=== PATIENT | female | born 1950 | race Caucasian/White ===

== ENCOUNTER 2024-07-08 17:39 | Inpatient (IN) | payer MEDICARE ==
[~2024-07-08] VITALS: Ht 170.2 cm; Wt 66.4 kg
[2024-07-08] MEDS ORDERED: LEVOTHYROXINE100 MCG PO (18:04)
[2024-07-08] MEDS ORDERED: LOSARTAN POTASS25 MG PO (18:04)
[2024-07-08] MEDS ORDERED: INGREZZA80 MG PO (18:04)
[2024-07-08 18:18] LABS: HEMATOCRIT 40.6 % (35.0-50.0); MCH 29.5 (27-36); MCHC 34.4 g/dl (30-36); MCV 85.6 fl (81-99); PLATELET COUNT 222 K/uL (140-440); RBC 4.74 M/ul (4.3-5.7); RDW 14.1 (10.5-15.0)
[2024-07-08 18:28] LABS: INR 1.32 (0.80-1.30); PROTIME 15.6 Sec (11.2-14.2)
[2024-07-08] MEDS ORDERED: AZITHROMYCIN 500 MG in DEXTROSE 5% 250 ML IV ONE (18:30)
[2024-07-08] MEDS ORDERED: CEFTRIAXONE SODIUM 1 GM in SODIUM CHLORIDE 0.9% 100 ML IV ONE (18:30)
[2024-07-08 18:56] LABS: ALBUMIN 2.9 g/dL (3.4-5.0); ALBUMIN/GLOBULIN RATIO 0.69 (1.1-2.4); ANION GAP 15.4 (7-21); BILIRUBIN, TOTAL 1.5 mg/dL (0.2-1.0); BUN/CREATININE RATIO 17.59 (6.0-28.6); CALCIUM 9.1 mg/dL (8.5-10.1); CREATININE, SERUM 1.08 mg/dL (0.55-1.02); POTASSIUM 3.4 mmol/L (3.5-5.1); PROTEIN, TOTAL 7.1 g/dL (6.4-8.2)
[2024-07-08 19:01] LABS: BANDS, MANUAL DIFF 1; LYMPHOCYTES, MANUAL DIFF 6; MONOCYTES, MANUAL DIFF 5; NEUTROPHILS, MANUAL DIFF 88
[2024-07-08] MEDS ORDERED: SODIUM CHLORIDE 0.9% 500 ML IV PRN (19:15)
[2024-07-08 19:45] LABS: BILIRUBIN, URINE NEGATIVE (negative); BLOOD/HGB, URINE LARGE (Negative); KETONE, URINE NEGATIVE (Negative); LEUK ESTERASE, URINE NEGATIVE (negative); NITRITE, URINE NEGATIVE (negative); PH, URINE 5.5 (5-7)
[2024-07-08] MEDS ORDERED: ACETAMINOPHEN 325 MG TAB PO PRN (20:00)
[2024-07-08] MEDS ORDERED: ondansetron HCL 4 MG/2 ML VIAL IV PRN (20:00)
[2024-07-08] MEDS ORDERED: SODIUM CHLORIDE 0.9% 1,000 ML IV SCH (20:00)
[2024-07-08 20:01] LABS: BACTERIA, URINE RARE /hpf (negative); CASTS, URINE GRANULAR 1+ \\lpf; COLLECTION TYPE, URINE CLEAN CATCH; CRYSTALS, URINE NONE SEEN (0-1+); EPITHELIAL CELLS, URINE NONE SEEN /lpf (0-1+); REFLEX CULTURE, URINE No (No)
--- NOTE | 2024-07-08 20:45 | NUR ---
PATIENT BROUGHT TO FLOOR BY BANDOLEER PACKER. REPORT RECEIVED FROM BANDOLEER PACKER. PATIENT TRANSFERRED FROM STRETCHER TO BED BY STAFF. THIS RN COMPLETED AN NIH AT ARRIVAL AND OBTAINED AN NIH SCORE OF 2. PATIENT A&O X4 WITH EQUAL STRENGTH IN ALL EXTREMETIES. PATIENT IS SLOW TO RESPOND AND HAS TROUBLE FINDING WORDS AT TIMES BUT TRACKS CONVERSATION APPROPRIATELY. NO FACIAL DROOP. PATIENT EDUCATED TO ROOM AND CALL LIGHT. PATIENT VERBILLIZES UNDERSTANDING. GROUND CREW LINES PERSON REMAINS IN ROOM.
[2024-07-08 21:10] VITALS: BP 110/64
[2024-07-08] MEDS ORDERED: NYSTATIN 500,000 UNITS/5 ML CUP PO SCH (21:15)
--- NOTE | 2024-07-08 21:18 | EKG ---
[facility] [address] [facility] [place] [address] Signed Sinus tachycardia Otherwise normal ECG No previous ECGs available Confirmed by Chikis Lehman MD () on 07/08/2024 9:18:13 PM Electronically Signed By: CHIKIS LEHMAN MD 07/08/[id number] PATIENT NAME: BLANK CROWE Electrocardiogram DATE OF : 48 PHYSICIAN: CHIKIS LEHMAN MD REPORT #: [id number] REPORT IS CONFIDENTIAL AND NOT TO BE RELEASED WITHOUT AUTHORIZATION
[2024-07-08] MEDS ORDERED: BENZONATATE 100 MG CAP PO PRN (21:30)
[2024-07-08] MEDS ORDERED: guaiFENesin 600 MG TABCR PO PRN (21:30)
[2024-07-08] MEDS ORDERED: POTASSIUM CHLORIDE 10 MEQ TABCR PO ONE (21:45)
--- NOTE | 2024-07-08 22:40 | NUR ---
PATIENT RESTING IN BED. SWALLOW EVAL COMPLETED. PATIENT SWALLOWS WITHOUT DIFFICULTY. NO COUGHING NOTED AFTER SWALLOWING. ASSESSMENT COMPLETED. SCHEDULED MEDICATION ADMINISTERED. PRN PAIN MEDICATION ADMINISTERED FOR LUQ PAIN PATIENT STATES THAT PAIN IS NOT NEW AND IT IS "FROM HER PNEUMONIA". PUREWICK PLACED AFTER PHILLIP CARE PROVIDED. FRESH WATER PROVIDED. PATIENT DENIES FURTHER NEEDS. CALL LIGHT IN REACH. BED ALARM ON.
[2024-07-09] VITALS (11 sets, daily range): BP systolic 99–124; BP diastolic 51–64
--- NOTE | 2024-07-09 01:27 | NUR ---
ROUNDING ON PATIENT. PATIENT STATING SHE CANNOT PEE INTO THE PUREWICK AND REQUESTING TO GET UP TO THE BSC. THIS RN AND INVOICING SPECIALIST IN ROOM TO ASSIST PATIENT TO BSC. PATIENT UP TO BSC USING 1PA TO VOID. PATIENT BACK TO BED. VS AND I&Os OBTAINED AND RECORDED. PATIENT REQUESTING TO NOT WEAR NC AT THIS TIME. O2 SAT 96% ON RA. PATIENT TITRATED TO ROOM AIR. RT YAN AWARE. PATIENT BED ALARM ON. NO FURTHER NEEDS AT THIS TIME. CALL LIGHT IN REACH.
--- NOTE | 2024-07-09 02:55 | NUR ---
PATIENT RESTING IN BED ON BACK WITH EYES CLOSED. RESPIRATIONS EVEN AND UNLABORED. CALL LIGHT IN REACH.
--- NOTE | 2024-07-09 04:47 | NUR ---
PATIENT RESTING IN BED WITH EYES CLOSED. RESPIRATIONS EVEN AND UNLABORED. CALL LIGHT IN REACH. BED ALARM ON.
[2024-07-09 05:36] LABS: BASOPHILS 0.2 % (0-2); EOSINOPHILS 0.1 % (0-6); HEMATOCRIT 36.6 % (35.0-50.0); HEMOGLOBIN 12.7 g/dL (12.0-18.0); LYMPHOCYTES 7.1 % (24-44); MCH 29.3 (27-36); MCHC 34.6 g/dl (30-36); MCV 84.6 fl (81-99); MONOCYTES 3.8 % (0-12); NEUTROPHILS 88.8 % (39-80); PLATELET COUNT 202 K/uL (140-440); RBC 4.33 M/ul (4.3-5.7); RDW 14.3 (10.5-15.0)
[2024-07-09 05:46] LABS: SMEAR REVIEW BLOOD SEE COMMENTS
[2024-07-09 06:00] LABS: ALBUMIN 2.6 g/dL (3.4-5.0); ALBUMIN/GLOBULIN RATIO 0.7 (1.1-2.4); ANION GAP 12.9 (7-21); BUN/CREATININE RATIO 21.83 (6.0-28.6); CHOLESTEROL/HDL RATIO 2.5; CREATININE, SERUM 0.87 mg/dL (0.55-1.02); MAGNESIUM 1.8 mg/dL (1.8-2.4); PHOSPHORUS, INORGANIC 2.2 mg/dL (2.5-4.9); POTASSIUM 3.9 mmol/L (3.5-5.1); PROTEIN, TOTAL 6.3 g/dL (6.4-8.2); TSH, 3RD GENERATION 0.162 uIU/mL (0.358-3.740)
--- NOTE | 2024-07-09 06:05 | NUR ---
THIS RN AND CAMELID FIBER SORTER CRYS IN ROOM TO OBTAINED VITALS AND I&Os. PATIENT UP TO BSC USING 1P SBA TO HAVE LIQUID BM. PATIENT BACK TO BED. SCDs IN PLACE. PATIENT A&O x4 AT THIS TIME. PATIENT HAS NO FURTHER NEEDS AT THIS TIME. CALL LIGHT IN REACH. BED ALARM ON.
--- NOTE | 2024-07-09 08:18 | NUR ---
ASSESSMENT COMPLETE. PT RESTING IN BED, NO COMPLAINTS OR REQUESTS AT THIS TIME. NEURO CHECK UNREMARKABLE. PT A&OX4, EQUAL STRENGTH CICI UPPER AND LOWER EXTREMITIES. NO SPEECH DELAY OR DIFFICULTY FINDING WORDS THIS MORNING PER PT. CALL LIGHT IN REACH.
[2024-07-09] MEDS ORDERED: INCRUSE ELLI62.5 MCG INH (08:44)
[2024-07-09] MEDS ORDERED: SOD PHOS MONO/SOD PHOS DIBAS 1 EACH PACKET PO ONE (09:00)
--- NOTE | 2024-07-09 09:18 | NUR ---
UR CLINICAL REVIEW: 2MN KAYODE, MEETS INPT FOR TIA, PNEUMONIA, SEPSIS ECHO, NEURO CHECKS, MRI, IV ANTIBIOTICS, OXYGEN USE ON ADMISSION. MEDICARE RAILROAD INPT 07/08/24 @ 2003 ORDER MATCHES REG NO AUTH PER MEDICARE RULES DC TO HOME WHEN MEDICALLY STABLE, 1-2 DAYS.
--- NOTE | 2024-07-09 09:45 | NUR ---
ECHO IN ROOM
--- NOTE | 2024-07-09 09:52 | NUR ---
MED REC COMPLETE
--- NOTE | 2024-07-09 10:25 | NUR ---
PT UP AMBULATING IN HALLS WITH PT, TOLERATING WELL.
--- NOTE | 2024-07-09 10:46 | NUR ---
CHIQUITA FROM DISCHARGE PLANNING IN TO SEE PT. SISTER IN ROOM. THIS RN ASKED JOANNA (SISTER) IF PT HAS ANY FACIAL DROOP, SISTER STATES THAT HER SISTER'S FACE LOOKS "NORMAL". NO ABNORMALITIES SEEN. CALL LIGHT WITHIN REACH. PT SITTING IN CHAIR. NO REQUESTS AT THIS TIME.
--- NOTE | 2024-07-09 11:59 | NUR ---
INTO SEE PATIENT. SISTER AT BEDSIDE. PERSONAL HEALTH INFORMATION REVIEWED. PATIENT LIVES IN A [place] ALONE. 2 STEPS TO GET INTO. DENIES ANY DIFFCULTY DOING THEM. DOES NOT HAVE DME AT HOME. PATIENT STILL DRIVES. SISTER TO DRIVE PATIENT HOME AT TIME OF DISCHARGE. DENIES ANY DIFFCULTY PAYING UTILITIES OR OBTAINING FOOD. NO FUTHER CM NEEDS AT THIS TIME.
[2024-07-09] MEDS ORDERED: PHARMACY RENAL DOSE ADJUSTMENT 1 DOSE MISC PO SCH (12:00)
--- NOTE | 2024-07-09 12:50 | NUR ---
PATIENT CALLS FROM BATHROOM, STATES "I POOPED MY PANTS". PATIENT HAS LOOSE STOOLS THAT ARE ORANGE/BROWN IN COLOUR. PATIENT PROVIDES HER OWN PHILLIP-CARE AND IS ASSISTED INTO A NEW PULL-UP. PATIENT WASHES HER HANDS AND AMBULATES BACK TO RECLINER. LUNCH TRAY REMOVED. NO REQUESTS, CALL LIGHT AND PERSONAL BELONGINGS IN REACH.
[2024-07-09] MEDS ORDERED: PATIENT'S OWN MEDICATION(S) ORDER PO SCH (12:59)
--- NOTE | 2024-07-09 13:08 | NUR ---
DR LEHMAN IN TO SEE PT AND DISCUSS PLAN OF CARE
--- NOTE | 2024-07-09 13:13 | NUR ---
PT RESTING IN CHAIR WITH LEGS ELEVATED VISITING [facility] PHARMACIST. CALL LIGHT WITHIN REACH, NO REQUESTS AT THIS TIME
[2024-07-09] MEDS ORDERED: IPRATROPIUM BROMIDE 2.5 ML VIAL INH SCH (14:00)
--- NOTE | 2024-07-09 14:32 | NUR ---
PT AWAKE SITTING IN CHAIR WITH LEGS RECLINED VISITING WITH SISTER, JOANNA. JOANNA BROUGHT PT'S HOME MEDS IN. MEDS PLACED IN LOCKBOX IN ROOM. CALL LIGHT WITHIN REACH, NO REQUESTS AT THIS TIME.
[2024-07-09] MEDS ORDERED: VALBENAZINE TOSYLATE 80 MG CAPSULE PO SCH (15:30)
--- NOTE | 2024-07-09 15:35 | NUR ---
SPEECH THERAPY IN TO SEE PT
--- NOTE | 2024-07-09 16:40 | NUR ---
PT SITTING UP IN CHAIR, REGULAR MENU GIVEN TO PT AND EXPLAINED HOW TO ORDER MEALS. PT STATES UNDERSTANDING.
[2024-07-09] MEDS ORDERED: CEFTRIAXONE SODIUM 2 GM in SODIUM CHLORIDE 0.9% 100 ML IV SCH (18:00)
[2024-07-09] MEDS ORDERED: AZITHROMYCIN 500 MG in DEXTROSE 5% 250 ML IV SCH (18:00)
--- NOTE | 2024-07-09 18:11 | NUR ---
PT FINISHING DINNER AND TALKING TO HER SISTER ON THE PHONE. NO REQUESTS AT THIS TIME. CALL LIGHT WITHIN REACH.
--- NOTE | 2024-07-09 18:18 | NUR ---
PATIENT IN CHAIR AT THIS TIME. MORTGAGE PROCESSING CLERK CHARTED VITALS AND I&O'S. CALL LIGHT WIHTIN REACH, NO FURTHER NEEDS AT THIS TIME.
--- NOTE | 2024-07-09 19:25 | NUR ---
REPORT RECEIVED FROM BEATRIZ GODFREY. PATIENT SITTING UP IN CHAIR. PATIENT DENIES ANY NEEDS AT THIS TIME. CALL LIGHT AND PERSONAL BELONGINGS ARE WITHIN REACH.
--- NOTE | 2024-07-09 20:25 | NUR ---
PATIENT SITTING UP IN HER CHAIR. VITAL SIGNS OBTAINED. FRESH CHUX PAD AND LINENS PROVIDED. PATIENT AMBULATED TO BED WITH THIS RN AT SIDE. PATIENT TOLERATED WELL. PATIENT IV X2 FLUSHED WITH 10ML OF NS, DRESSINGS ARE INTACT. IV FLUID INFUSING AT 125ML/HR IN PATIENT RIGHT WRIST IV. PATIENT ASSESSMENT COMPLETED. PATIENT WITHOUT FURTHER NEEDS AT THIS TIME. CALL LIGHT AND PERSONAL BELONGINGS ARE WITHIN REACH. VITAL SIGNS ARE STABLE.
--- NOTE | 2024-07-09 21:40 | NUR ---
PATIENT RESTING IN BED WITH HER EYES CLOSED. EVEN AND UNLABORED RESPIRATIONS NOTED. CALL LIGHT AND PERSONAL BELONGINGS ARE WITHIN REACH.
--- NOTE | 2024-07-09 22:50 | NUR ---
PATIENT RESTING IN BED ON HER LEFT SIDE WITH HER EYES CLOSED. EVEN AND UNLABORED REPIRATIONS NOTED. CALL LIGHT AND PERSONAL BELONGINGS ARE WITHIN REACH.
--- NOTE | 2024-07-09 23:14 | NUR ---
RESPONDED TO BEEPING IV. REPLACED FLUIDS. PT RESTING IWTH EYES CLOSED, BREATHING AUDIBLE. CALL LIGHT IN REACH
[2024-07-10] VITALS (12 sets, daily range): BP systolic 129–150; BP diastolic 68–86
--- NOTE | 2024-07-10 00:20 | NUR ---
PATIENT RESTING IN BED ON HER LEFT SIDE WITH HER EYES CLOSED. EVEN AND UNLABORED RESPIRATIONS NOTED. CALL LIGHT AND PERSONAL BELONGINGS ARE WITHIN REACH.
--- NOTE | 2024-07-10 01:20 | NUR ---
PATIENT NEURO CHECK COMPLETE. PATIENT IS ALERT AND ORIENTED X4. PATIENT VITAL SIGNS TAKEN AND ARE STABLE. PATIENT WITHOUT FURTHER NEEDS AT THIS TIME. CALL LIGHT AND PERSONAL BELONGINGS ARE WITHIN REACH.
--- NOTE | 2024-07-10 01:26 | NUR ---
ASSISTED TO BATHROOM 1PA. NO OTHER NEEDS PRESENTLY, CALL LIGHT IN REACH
--- NOTE | 2024-07-10 02:39 | NUR ---
PATIENT RESTING IN BED ON HER LEFT SIDE WITH HER EYES CLOSED. EVEN AND UNLABORED RESPIRATIONS NOTED. CALL LIGHT AND PERSONAL BELONGINGS ARE WITHIN REACH.
--- NOTE | 2024-07-10 03:42 | NUR ---
PATIENT RESTING IN BED ON HER LEFT SIDE WITH HER EYES CLOSED. EVEN AND UNLABORED RESPIRATIONS NOTED. CALL LIGHT AND PERSONAL BELONGINGS ARE WITHIN REACH.
[2024-07-10 05:18] LABS: BASOPHILS 0.3 % (0-2); EOSINOPHILS 1.6 % (0-6); HEMATOCRIT 35.3 % (35.0-50.0); HEMOGLOBIN 12.2 g/dL (12.0-18.0); LYMPHOCYTES 14.7 % (24-44); MCH 29.2 (27-36); MCHC 34.6 g/dl (30-36); MCV 84.6 fl (81-99); MONOCYTES 3.9 % (0-12); NEUTROPHILS 79.5 % (39-80); PLATELET COUNT 197 K/uL (140-440); RBC 4.18 M/ul (4.3-5.7); RDW 14.3 (10.5-15.0)
[2024-07-10 05:34] LABS: ALBUMIN 2.2 g/dL (3.4-5.0); ALBUMIN/GLOBULIN RATIO 0.65 (1.1-2.4); ANION GAP 13.7 (7-21); BILIRUBIN, TOTAL 0.3 mg/dL (0.2-1.0); BUN/CREATININE RATIO 22.38 (6.0-28.6); CALCIUM 8.4 mg/dL (8.5-10.1); CREATININE, SERUM 0.67 mg/dL (0.55-1.02); POTASSIUM 3.7 mmol/L (3.5-5.1); PROTEIN, TOTAL 5.6 g/dL (6.4-8.2)
--- NOTE | 2024-07-10 05:50 | NUR ---
PATIENT MEDICATED PER EMAR. NEURO CHECK COMPLETED. INTAKE AND OUTPUT DOCUMENTED. PATIENT WITHOUT FURTHER NEEDS AT THIS TIME. CALL LIGHT AND PERSONAL BELONGINGS ARE WITHIN REACH.
[2024-07-10] MEDS ORDERED: LEVOTHYROXINE SODIUM 88 MCG TAB PO SCH (06:00)
--- NOTE | 2024-07-10 07:18 | NUR ---
PATIENT SLEEPING IN BED AT THIS TIME. ENGRAVER SEALS DID HOURLY ROUNDS. CALL LIGHT WITHIN REACH, NO FURTHER NEEDS AT THIS TIME.
--- NOTE | 2024-07-10 07:44 | NUR ---
Patient resting in bed, eyes closed, respirations non labored. Call light within reach.
[2024-07-10] MEDS ORDERED: metroNIDAZOLE/SODIUM CHLORIDE 500 MG/100 ML PIGGYBACK IV SCH (08:00)
--- NOTE | 2024-07-10 08:22 | NUR ---
Patient sitting up in chair eating breakfast, alert and oriented x4, no acute distress. Patient ambulated to restroom, minimal assistance with IV pole. Patient denies numbness/tingling. Equal claims representative to upper/lower extremities. Morning medications admin at this time. Patient also received prn tylenol 650mg po, mucinex and tessalon perles for cough/congestion.
--- NOTE | 2024-07-10 08:33 | NUR ---
Patient in bed eating breakfast with her at bedside. notably attentive to patient, he provides assistance with basic care duties.
--- NOTE | 2024-07-10 08:49 | NUR ---
LOYD AND LOYD MAYFIELD ASSISTED PT TO CHAIR BED CHANGE COMPLETED CALL LIGHT WITHIN REACH BEATRIZ DOLL IN ROOM AT THIS TIME NO FURTHER NEEDS
--- NOTE | 2024-07-10 09:34 | NUR ---
PATIENT IN CHAIR AT THIS TIME. LOYD MATHIAS AND THIS OFFSET PRINTING OPERATOR CAHRTED VITALS AND I&O'S. PATIENT STATED THAT SHE COUGHED UP BLOOD, BEATRIZ VIVEROS NOTIFIED. CALL LIGHT WITHIN REACH, NO FURTHER NEEDS AT THIS TIME.
--- NOTE | 2024-07-10 10:56 | NUR ---
Patient in chair watching tv, no distress. Patient reports coughing up more mucus, very scant pink blood noted on kleenex. Patient denies shortness of breath at this time. Patient's iv patent, fluids infusing her order. No current needs, personal supplies and call light within reach.
--- NOTE | 2024-07-10 14:59 | NUR ---
COMPLETED VITAL SIGNS PT NEEDED TO USE THE TOILET, VOIDED 300 ML STANDBY ASSIST TO TOILET AND BACK TO CHAIR PLUGGED PT'S IV BACK IN, COVERED PT WITH BLANKET, INSTRUCTED PT MILK DRIER LIGHT OPERATION AND PLACED CALL LIGHT NEXT TO PT PT REQUESTED OVERHEAD LIGHTS TO BE TURNED OFF NOTHING ELSE NEEDED AT THIS TIME
--- NOTE | 2024-07-10 19:33 | NUR ---
REPORT RECEIVED FROM BEATRIZ VIVEROS. PATIENT SITTING UP IN CHAIR, IV FLUIDS INFUSING. PATIENT REQUESTING TO "NOT BE BOTHERED TONIGHT". THIS RN LET PATIENT KNOW BEGINGING OF SHIFT VITALS, NEURO CHECK/ASSESSMENT, AND MEDICATION ADMINISTRATION NEEDS TO BE COMPLETED; BUT THEN PATIENT CAN REST THROUGHOUT THE NIGHT. THIS RN LET PATIENT KNOW STAFF WILL BE COMING IN TO CHECK ON PATIENT HOURLY THROUGHOUT THE NIGHT, BUT WILL RESPECT HER WISHES TO NOT BE WOKEN UP. THIS RN ALSO LET PATIENT KNOW 0500 BLOOD DRAW NEEDS TO BE COMPLETED, BUT PATIENT MORNING VITAL SIGNS, MEDICATIONS, AND NEURO CHECK/ASSESSMENT CAN ALL BE COMPLETED AT THE SAME TIME. PATIENT VERBALIZED AGREEMENT WITH PLAN. PATIENT REQUESTING TO USE BATHROOM AT THIS TIME. BEATRIZ VIVEROS IN ROOM STILL AND ASSISTED PATIENT UP TO THE BATHROOM.
--- NOTE | 2024-07-10 20:45 | NUR ---
BARI, RN IN WITH PATIENT AT THIS TIME.
--- NOTE | 2024-07-10 21:25 | NUR ---
PATIENT ASSESSMENT COMPLETED. PATIENT IS ALERT AND ORIENTED X4, TRANSFERS VIA 1PR FOR SUPERVISION DUE TO ADMIT DX OF PNA/TIA. PATIENT DENIES ANY DIZZINESS WITH TRANSFERS AND STATES "I WALKED AROUND MY ROOM TODAY AND CLEANED IT UP AND ORGANIZED IT ALL ON MY OWN AND DIDN'T FEEL DIZZY AT ALL". THIS RN ASKED PATIENT TO CALL IF SHE NEEDS TO GET UP TO THE BATHROOM IN THE MIDDLE OF THE NIGHT FOR STAFF TO MANAGE THE IV LINES FOR SAFE PATIENT TRANSFERING. PATIENT VERBALIZED UNDERSTANDINGS AND AGREES TO CALL. PATIENT CARDIAC IS REGULAR WITH S1-S2 NOTED AND IN SINUS RHYTHM AT THIS TIME. PATIENT IS ON TELE #6. CAPILARY REFILL IS <3 SECONDS IN BILATERAL UPPER AND LOWER EXTREMETIES. PATIENT DENIES ANY NUBNESS OR TINGLING IN UPPER OR LOWER EXTREMETIES. CMS INTACT. PATIENT SKIN IS INTACT. PATIENT DENIES ANY PAIN AT THIS TIME. PATIENT IS ON ROOM AIR, LUNG SOUNDS ARE DIMINISHED/CRACKLES IN BILATERAL UPPER LOBES AND WITH CRACKLES IN BILATERAL BASES. PRN MUCINEX ADMINISTERED PER PATIENT REQUEST. PATIENT DENIES ANY SOB OR CHEST PAIN/PRESSURE. PATIENT IS ON A REGULAR DIET WITH ACTIVE BOWEL TONES IN ALL FOUR QUADRANTS. PATIENT LAST BM WAS TODAY 07/10/24. PATIENT HAS RIGHT WRIST IV THAT WAS FLUSHED WITH 10ML OF NS, DRESSING INTACT. NS INFUSING CONTINUOUSLY AT 125ML/HR. IV TO LAC WAS REMOVED BY THIS RN DUE TO PATIENT REPORTIN SEVERE PAIN WHEN THIS RN ATTEMPTED TO FLUSH IV TO ASSESS PATENTCY. GAUZE WITH COBAN PLACED AFTER IV REMOVAL. IV CATHETER WAS INTACT. IV SITE WITHOUT REDNESS OR SWELLING. PATIENT WITHOUT FURTHER NEEDS AT THIS TIME. CALL LIGHT AND PERSONAL BELONGINGS ARE WITHIN REACH. THIS RN NOTIFIED DR LEHMAN THAT THE PATIENT IS REQUESTING TO BE LEFT ALONE THROUGHOUT THE NIGHT; TO NOT HAVE 0200 VITAL SIGNS AND NEURO CHECKS DONE. DR LEHMAN STATES HE IS OKAY WITH LETTING PATIENT REST. WITH NO FURTHER ORDERS AT THIS TIME.
--- NOTE | 2024-07-10 22:53 | NUR ---
PATIENT RESTING IN BED ON HER LEFT SIDE WITH HER EYES CLOSED. EVEN AND UNLABORED RESPIRATIONS NOTED. CALL LIGHT AND PERSONAL BELONGINGS ARE WITHIN REACH.
--- NOTE | 2024-07-10 23:57 | NUR ---
PATIENT RESTING IN BED ON HER LEFT RIGHT. EVEN AND UNLABORED RESPIRATIONS NOTED. CALL LIGHT AND PERSONAL BELONGINGS ARE WITHIN REACH.
[2024-07-11] VITALS (10 sets, daily range): BP systolic 145–163; BP diastolic 71–88
--- NOTE | 2024-07-11 00:08 | NUR ---
THIS RN IN ROOM FOR ABX INFUSION AND NEW BAG OF NS PLACED. PATIENT RESTING ON LEFT SIDE WITH EYES CLOSED, EVEN AND UNLABORED RESPIRATIONS NOTED. IV SITE WITHOUT S/SX OF INFECTION OR INFILTRATION. CALL LIGHT AND PERSONAL BELONGINGS ARE WITHIN REACH.
[2024-07-11 00:24] LABS: THYROXINE FREE 1.2 ng/dL (0.9-1.7)
--- NOTE | 2024-07-11 00:45 | NUR ---
PATIENT UP TO BATHROOM AT THIS TIME WITH INCONTINENCE EPISODE OF DIARRHEA. PATIENT STATES SHE THOUGHT SHE HAD TO PEE, THEN WENT TO THE BATHROOM AND "MY UNDERPANTS HAD POOP IN THEM". LIQUID STOOL NOTED. DUE TO PATIENT BEING ON ABX, THIS RN ADDED REQUEST TO DIETARY FOR YOGURT TO BE SENT WITH PATIENT MEALS. NEURO CHECK COMPLETED WHILE PATIENT IS UP. PATIENT IS ALERT AND ORIENTED X4, PATIENT AMBULATED TO BATHROOM WITHOUT ASSISTANCE AND WITHOUT REPORTS OF FEELING DIZZY OR LIGHTHEADED. CMS INTACT, SPEECH CLEAR, AND PUPILS ARE WNL. PATIENT REFUSING VITAL SIGNS AT THIS TIME. PATIENT WISHES RESPECTED. PATIENT BACK IN BED, IV ABX COMPLETED, NS INFUSING CONTINUOUS AT 125ML/HR. PATIENT WITHOUT FURTHER NEEDS AT THIS TIME. CALL LIGHT AND PERSONAL BELONGINGS ARE WITHIN REACH.
--- NOTE | 2024-07-11 01:10 | NUR ---
PATIENT UP TO BATHROOM AGAIN AT THIS TIME. PATIENT WILLINGLY LET THIS RN TAKE VITAL SIGNS. [employer] PROVIDED FRESH ICE WATER. PATIENT BACK IN BED AND WITHOUT FURTHER NEEDS. CALL LIGHT AND PERSONAL BELONGINGS ARE WITHIN REACH. VS STABLE.
--- NOTE | 2024-07-11 05:15 | NUR ---
PATIENT IV INFILTRATED. IV REMOVED, PATIENT EDUCATED TO KEEP ARM ELEVATED. PATIENT VERBALIZED UNDERSTANDING. PATIENT REQUESTING TO NOT HAVE ANOTHER IV. THIS RN EDUCATED PATIENT ON THE IMPORTANCE OF HAVING IV ACCESS IN CASE OF AN EMERGENCY, BUT LET PATIENT KNOW DR LEHMAN WILL BE NOTIFIED AND IF GIVEN THE ORDERS FOR NO IV ACCESS, IV CAN BE LEFT OUT. PATIENT AGREES WITH PLAN. PATIENT UP TO THE BATHROOM AT THIS TIME WITH MOVIE CRITIC.
[2024-07-11 05:31] LABS: BASOPHILS 0.5 % (0-2); EOSINOPHILS 3.5 % (0-6); HEMATOCRIT 35.9 % (35.0-50.0); HEMOGLOBIN 12.3 g/dL (12.0-18.0); LYMPHOCYTES 17.9 % (24-44); MCHC 34.3 g/dl (30-36); MCV 84.6 fl (81-99); MONOCYTES 5.5 % (0-12); NEUTROPHILS 72.6 % (39-80); PLATELET COUNT 231 K/uL (140-440); RBC 4.24 M/ul (4.3-5.7); RDW 13.9 (10.5-15.0)
[2024-07-11 05:52] LABS: ALBUMIN 2.2 g/dL (3.4-5.0); ALBUMIN/GLOBULIN RATIO 0.61 (1.1-2.4); ANION GAP 11.4 (7-21); BILIRUBIN, TOTAL 0.3 mg/dL (0.2-1.0); BUN/CREATININE RATIO 9.72 (6.0-28.6); CALCIUM 8.3 mg/dL (8.5-10.1); CREATININE, SERUM 0.72 mg/dL (0.55-1.02); POTASSIUM 3.4 mmol/L (3.5-5.1); PROTEIN, TOTAL 5.8 g/dL (6.4-8.2)
--- NOTE | 2024-07-11 06:00 | NUR ---
DR LEHMAN NOTIFIED OF PATIENT IV INFILTRATION. THIS RN NOTIFIED MD OF PATIENT WISHES TO NOT HAVE ANOTHER IV AND THAT PATIENT HAS HAD OVER 1000ML OF URINE OUTPUT THIS SHIFT. MD WITH VERBAL ORDERS TO STOP IV FLUIDS, BUT MD STATES HE WANTS TO KEEP IV ACCESS AVAILABLE. MD WITH NO FURTHER ORDERS AT THIS TIME.
--- NOTE | 2024-07-11 07:31 | NUR ---
VERBAL REPORT RECEIVED FROM BEATRIZ GARNICA. PT RESTS IN BED AWAKE AND ALERT. CALL LIGHT IN REACH. NO REQUESTS AT THIS TIME.
[2024-07-11] MEDS ORDERED: POTASSIUM CHLORIDE 10 MEQ TABCR PO ONE (07:45)
--- NOTE | 2024-07-11 08:13 | NUR ---
HOURLY ROUNDING. PATIENT APPEARS TO BE IN A GREAT MOOD, VERY GRATEFUL FOR THE SERVICE THAT SHE IS RECIEVING. NO REQUEST FROM PATIENT AT THIS TIME.
--- NOTE | 2024-07-11 11:28 | NUR ---
HOURLY ROUNDING. PATIENT IS ON HER PHONE NO REQUEST FROM PATIENT CALL LIGHT HAS BEEN PLACED WITHIN REACH
--- NOTE | 2024-07-11 12:53 | NUR ---
PT SITS UP IN RECLINER, RESP EVEN AND UNLABORED. PT IS ALERT AND ORIENTED, TOLERATES LUNCH WELL. CALL LIGHT IN REACH. DR. LEHMAN INTO SEE PT.
[2024-07-11] MEDS ORDERED: ASPIRIN 325 MG TAB PO ONE (13:15)
--- NOTE | 2024-07-11 19:20 | NUR ---
REPORT RECEIVED FROM BEATRIZ ZIMMERMAN AND SN MICHAEL. PATIENT SITTING UP IN CHAIR WATCHING TV. PATIENT WITHOUT ANY NEEDS AT THIS TIME. CALL LIGHT AND PERSONAL BELONGINGS ARE WITHIN REACH.
--- NOTE | 2024-07-11 20:19 | NUR ---
RT IN ROOM FOR BREATHING TREATMENT AT THIS TIME.
[2024-07-11] MEDS ORDERED: ATORVASTATIN 40 MG TAB PO SCH (21:00)
--- NOTE | 2024-07-11 21:00 | NUR ---
PATIENT MEDICATED PER EMAR. PATIENT ASSESSMENT COMPLETED. PATIENT IS ALERT AND ORIENTED X4, PATIENT TRANSFERS INDEPENDENTLY TO THE BATHROOM. PATIENT DENIES ANY PAIN AT THIS TIME. IV FLUSHED WITH 10ML OF NS, DRESSING INTACT AND IS SALINE LOCKED. WARM BLANKET PROVIDED. PATIENT WITHOUT FURTHER NEEDS AT THIS TIME. CALL LIGHT AND PERSONAL BELONGINGS ARE WITHIN REACH.
--- NOTE | 2024-07-11 22:28 | NUR ---
PATIENT RESTING IN BED ON HER LEFT SIDE WITH HER EYES CLOSED. EVEN AND UNLABORED RESPIRATIONS NOTED. CALL LIGHT AND PERSONAL BELONGINGS ARE WITHIN REACH.
--- NOTE | 2024-07-11 23:57 | NUR ---
PATIENT ABX STARTED AT THIS TIME. PATIENT RESTING ON HER LEFT SIDE WITH HER EYES CLOSED. EVEN AND UNLABORED RESPIRATIONS NOTED. CALL LIGHT AND PERSONAL BELONGINGS ARE WITHIN REACH.
--- NOTE | 2024-07-12 00:29 | NUR ---
IV ABX COMPLETED AT THIS TIME. IV FLUSHED WITH 10ML OF NS AND IS SALINE LOCKED, DRESSING INTACT. CALL LIGHT AND PERSONAL BELONGINGS ARE WITHIN REACH.
--- NOTE | 2024-07-12 02:23 | NUR ---
PATIENT RESTING IN BED ON HER LEFT SIDE WITH HER EYES OPENED. NEURO CHECK COMPLETED. PATIENT IS ALERT AND ORIENTED X4. PATIENT DENIES ANY NUMBNESS OR TINGLING. CMS INTACT. PATIENT WITHOUT ANY NEEDS AT THIS TIME. CALL LIGHT AND PERSONAL BELONGINGS ARE WITHIN REACH.
--- NOTE | 2024-07-12 03:41 | NUR ---
PATIENT RESTING IN BED ON HER LEFT SIDE WITH HER EYES CLOSED. EVEN AND UNLABORED RESPIRATIONS NOTED. CALL LIGHT AND PERSONAL BELONGINGS ARE WITHIN REACH.
--- NOTE | 2024-07-12 05:29 | NUR ---
PATIENT MEDICATED PER EMAR. VITAL SIGNS AND INTAKE AND OUTPUT TAKEN AND DOCUMENTED. LAB IN ROOM AT THIS TIME FOR MORNING BLOOD DRAW. PATIENT WITHOUT FURTHER NEEDS AT THIS TIME. CALL LIGHT AND PERSONAL BELONGINGS ARE WITHIN REACH. VITAL SIGNS ARE STABLE.
[2024-07-12 05:34] VITALS: BP 164/91
[2024-07-12 05:37] LABS: BASOPHILS 0.8 % (0-2); EOSINOPHILS 4.9 % (0-6); HEMATOCRIT 37.1 % (35.0-50.0); HEMOGLOBIN 13.1 g/dL (12.0-18.0); LYMPHOCYTES 18.1 % (24-44); MCH 29.5 (27-36); MCHC 35.2 g/dl (30-36); MCV 83.7 fl (81-99); MONOCYTES 6.4 % (0-12); NEUTROPHILS 69.8 % (39-80); PLATELET COUNT 257 K/uL (140-440); RBC 4.43 M/ul (4.3-5.7); RDW 14.1 (10.5-15.0)
[2024-07-12 05:54] LABS: ALBUMIN 2.7 g/dL (3.4-5.0); ALBUMIN/GLOBULIN RATIO 0.75 (1.1-2.4); ANION GAP 10.8 (7-21); BILIRUBIN, TOTAL 0.3 mg/dL (0.2-1.0); BUN/CREATININE RATIO 8.21 (6.0-28.6); CREATININE, SERUM 0.73 mg/dL (0.55-1.02); POTASSIUM 3.8 mmol/L (3.5-5.1); PROTEIN, TOTAL 6.3 g/dL (6.4-8.2)
--- NOTE | 2024-07-12 07:12 | NUR ---
VERBAL REPORT RECEIVED FROM BEATRIZ GARNICA. PT AWAKE AND ALERT IN RECLINER, CALL LIGHT IN REACH, NO REQUESTS AT THIS TIME.
[2024-07-12] MEDS ORDERED: ASPIRIN 81 MG CHEW PO SCH (08:00)
--- NOTE | 2024-07-12 08:37 | NUR ---
HOURLY ROUNDING. PATIENT APPEARS TO BE IN GOOD SPIRITS THIS MORNING, I UPDATED THE BOARD. NO REQUEST FROM PATIENT AT THIS TIME
[2024-07-12 09:56] VITALS: BP 154/89
--- NOTE | 2024-07-12 10:22 | NUR ---
MEWS AND SHIFT SCREENING RECEIVED.
--- NOTE | 2024-07-12 10:26 | NUR ---
PT RECOMMENDING OUT PATIENT PT. DISCUSSED WITH PATIENT. PATIENT CHOICES PROVIDED. STATES [facility] IS HER PREFERENCE. DENIES OTHER CM NEEDS AT THIS TIME. WILL SEND OUTPATIENT REFERRAL TO [facility].
[2024-07-12] MEDS ORDERED: ASPIRIN81 MG PO (11:03)
[2024-07-12] MEDS ORDERED: LEVOTHYROXINE88 MCG PO (11:03)
[2024-07-12] MEDS ORDERED: CEFPODOXIME PR200 MG PO (11:06)
--- NOTE | 2024-07-12 11:50 | NUR ---
DISCUSSED DISCHARGE INSTRUCTIONS WITH PT, PT VERBALIZES UNDERSTANDING. IV REMOVED, TIP INTACT, GAUZE AND COBAN APPLIED TO SITE, PT TOLERATED WELL. PT'S SISTER ARRIVES TO TRANSPORT PT HOME AND BRINGS CLOTHES FOR PT. PT DRESSES SELF. VSS. PT LEAVES MED-SURG VIA WHEELCHAIR WITH BELONGINGS IN SAH BAGS, ESCORTED BY MICHAEL STUDENT RN TO PRIVATE CAR DRIVEN BY SISTER.
--- NOTE | 2024-07-12 13:07 | NUR ---
CLINICALS, ORDER, NOTES AND FACESHEET FAXED TO [facility].
[2024-07-12 15:05] LABS: CRP,HIGH SENSITIVITY 96.1 mg/L (<=3.0)
== END 2024-07-12 11:50 | disposition home or self-care (01) | DRG 871 ==
LOC: ED 17:39 → MS 20:16
PROVIDERS: Emergency Medicine; ADMIT Family Medicine; ATTEND Family Medicine
DX: A41.9 Sepsis, unspecified organism (principal); J18.9 Pneumonia, unspecified organism; G45.9 Transient cerebral ischemic attack, unspecified; R47.01 Aphasia; B37.0 Candidal stomatitis; J44.9 Chronic obstructive pulmonary disease, unspecified; E87.6 Hypokalemia; E03.9 Hypothyroidism, unspecified; E83.39 Other disorders of phosphorus metabolism; G24.01 Drug induced subacute dyskinesia; Z87.891 Personal history of nicotine dependence; Z90.710 Acquired absence of both cervix and uterus; Z90.49 Acquired absence of other specified parts of digestive tract; Z79.890 Hormone replacement therapy; Z79.899 Other long term (current) drug therapy; Z99.81 Dependence on supplemental oxygen
CPT/HCPCS: 36415; 70450; 70496; 70498; 70551; 71045; 71260; 74177; 80053; 80061; 81001; 83036; 83605; 83735; 84100; 84439; 84443; 85025; 85060; 85610; 86140; 86141; 87040; 92522; 93005; 93010; 93306; 94640; 94667; 94668; 94760; 97116; 97162; 97166; 97530; 97535; 99285-25; A9270; J0456; J0696; J7030; J7040; J7060; Q9967